=== PATIENT | female | born 1960 | race African-American/Black ===

== ENCOUNTER 2016-11-15 13:32 | Emergency (ER) | payer OTHER, MEDICARE ==
[~2016-11-15] VITALS: Ht 167.6 cm; Wt 71.2 kg
[~2016-11-15 13:32] MED LIST: AFRIN PUMPMIST15 ML NASB; ALBUTEROL0.09 MG/A1 INH; AMOXIL 875 MG875 MG PO; BACTRIM DS 8001 TAB PO; DURICEF500 MG PO; EFFEXOR-XR75 MG PO; FLEXERIL10 MG PO; FLUCONAZOLE150 MG PO; IBU800 MG PO; IBUPROFEN800 M1 PO; MEDROL DOSEPAK1 PAC PO; PANTOPRAZOLE SO40 MG PO; PERCOCET 325 MG1 TA2 PO; PERCOCET 5-3251 EACH PO; PYRIDIUM200 MG PO; TESSALON PERLE100 MG PO; VALIUM5 M1 PO; VENLAFAXINE225 MG PO
[2016-11-15 13:40] VITALS: BP 126/63
[2016-11-15] MEDS ORDERED: AUGMENTIN 875-1 EACH PO (14:02)
--- NOTE | 2016-11-15 14:02 | ED INFLUENZA/URI COMPLAINT ---
History of Present Illness General Chief Complaint: General Adult Stated Complaint: "I THINK I HAVE SINUS INFECTION" Source: patient Exam Limitations: no limitations Vital Signs & Intake/Output Vital Signs & Intake/Output Vital Signs Date Time Temp Pulse Resp B/P Pulse O2 O2 Flow FiO2 Ox Delivery Rate 11/15 1340 98.6 84 20 126/63 97 Room Air Allergies Coded Allergies: acetaminophen (From VICODIN) (UPSET STOMACH 11/02/15) hydrocodone (From VICODIN) (UPSET STOMACH 11/02/15) Reconcile Medications Amoxicillin/Potassium Clav (Augmentin 875-125 Tablet) 875 MG-125 MG TABLET 1 TAB PO BID SINUSITIS Ibuprofen 800 MG TABLET 1 TAB PO TID PRN PAIN Oxycodone HCl/Acetaminophen (Percocet 5-325 MG Tablet) 1 EACH TABLET 1 TAB PO Q4-6 PRN BREAKTHROUGH PAIN Pantoprazole Sodium 40 MG TABLET.DR 1 TAB PO DAILY AC GI (Reported) Phenazopyridine Hydrochlorid2 (Pyridium) 200 MG TAB 1 TAB PO TID DYSURIA Sulfamethoxazole/Trimethopri (Bactrim Ds 800 MG-160 MG) 1 TAB TAB 1 TAB PO Q12 UTI Venlafaxine Hydrochloride (Effexor-XR) 75 MG CER 1 CAP PO DAILY DEPRESSION ( Reported) Triage Note: "I THINK I HAVE A SINUS INFECTION " PAIN AND PRESSURE, CONGESTION IN HEAD X 2 WEEKS Triage Nurses Notes Reviewed? yes HPI: 56-year-old female here with complaints of sinus pain and pressure and thick yellow rhinorrhea that has been going on for 2 weeks, no significant improvement. She denies fever or flulike illness. She has a minimal cough without production. Symptoms are moderate pressure sensation in the sinuses and the nasal cavity. No sore throat. Past History Travel History Traveled to [place] past 21 day No Medical History Any Pertinent Medical History? see below for history Neurological: NONE EENT: NONE Cardiovascular: NONE Respiratory: NONE Gastrointestinal: GERD, BOWEL OBSTRUCTION Hepatic: NONE Renal: NONE Musculoskeletal: NONE Psychiatric: depression, PTSD Endocrine: NONE Blood Disorders: NONE Cancer(s): NONE TRANSLATIONAL SPECIALIST/Reproductive: NONE Other Medical Hx: sMALL BOWEL OBSTRUCTION Surgical History Surgical History: BOWEL RESECTION FROM SMALL BOWEL OBSTRUCTION 1980S Psychosocial History Who do you live with Family What is your primary language Grenadian Tobacco Use: Current Not Daily Daily Tobacco Use Amount/Type: =< 4 Cigarettes daily ETOH Use: occasional use Illicit Drug Use: denies illicit drug use Family History Hx Contributory? No Review of Systems Review of Systems Constitutional: Reports: see HPI. EENTM: Reports: see HPI. Respiratory: Reports: no symptoms. Cardiovascular: Reports: no symptoms. GI: Reports: no symptoms. Genitourinary: Reports: no symptoms. Musculoskeletal: Reports: no symptoms. Skin: Reports: no symptoms. Neurological/Psychological: Reports: no symptoms. Hematologic/Endocrine: Reports: no symptoms. Immunologic/Allergic: Reports: no symptoms. All Other Systems: Reviewed and Negative Physical Exam Physical Exam Ears, Nose, Throat: PAIN PRESSURE TO THE FRONTAL MAXILLARY SINUSES WITH NASAL CONGESTION NOTED. Respiratory: normal breath sounds, chest non-tender, no respiratory distress Cardiovascular: regular rate/rhythm Comments: Well-developed well-nourished no apparent distress. HEENT: Atraumatic, extraocular motion intact Neck: Supple, no lymphadenopathy Back: Nontender Respiratory: No respiratory distress Extremities: No edema, full range of motion Neuro: Alert and oriented x3 Psych: Mood affect normal, normal memory normal judgment. Skin: Warm and dry, no rash on exposed skin Core Measures Severe Sepsis Present: No Septic Shock Present: No Progress Differential Diagnosis: influenza, meningitis, neutropenia, otitis, pneumonia, pharyngitis, sinusitis Plan of Care: We'll treat with antibiotics for sinusitis recommend nasal spray over-the- counter Initial ED EKG: none Departure Departure Disposition: HOME OR SELF CARE Condition: Stable Clinical Impression Primary Impression: Sinusitis Referrals: STEFAN BROWN APRN (PCP/Family) Additional Instructions: Take antibiotics for your infection as directed. Use [id number] multisystem cold medication as needed. Motrin and Tylenol as needed for fever. Drink plenty of fluids. Return or follow-up with your doctor if not better in the next 3-5 days or if you're having continued worsening fevers, nausea, vomiting, shortness of breath, abdominal pain, difficulty swallowing or drinking or worsening flulike illness. Departure Forms: Customer Survey General Discharge Information Prescriptions: Current Visit Scripts Amoxicillin/Potassium Clav (Augmentin 875-125 Tablet) 1 TAB PO BID #20 TAB
== END 2016-11-15 14:34 ==
LOC: ERH 13:32
DX: J32.9 Chronic sinusitis, unspecified (principal)

== ENCOUNTER 2016-11-23 15:06 | Emergency (ER) | payer OTHER, MEDICARE ==
[~2016-11-23] VITALS: Ht 167.6 cm; Wt 71.2 kg
[~2016-11-23 15:06] MED LIST changes: +AUGMENTIN 875-1 EACH PO
--- NOTE | 2016-11-23 16:05 | ED HAND/WRIST INJURY COMPLAINT ---
History of Present Illness General Chief Complaint: Hand or Wrist Injury Stated Complaint: RT WRIST PAIN Source: patient, old records Exam Limitations: no limitations Vital Signs & Intake/Output Vital Signs & Intake/Output Vital Signs Date Time Temp Pulse Resp B/P Pulse O2 O2 Flow FiO2 Ox Delivery Rate 11/23 1509 97.1 86 18 156/88 96 Allergies Coded Allergies: acetaminophen (From VICODIN) (UPSET STOMACH 11/02/15) hydrocodone (From VICODIN) (UPSET STOMACH 11/02/15) Reconcile Medications Amoxicillin/Potassium Clav (Augmentin 875-125 Tablet) 875 MG-125 MG TABLET 1 TAB PO BID SINUSITIS Ibuprofen 800 MG TABLET 1 TAB PO TID PRN PAIN Naproxen (Naprosyn) 500 MG TABLET 1 TAB PO Q12H PRN pain Oxycodone HCl/Acetaminophen (Percocet 5-325 MG Tablet) 1 EACH TABLET 1 TAB PO Q4-6 PRN BREAKTHROUGH PAIN Oxycodone HCl/Acetaminophen (Percocet 5-325 MG Tablet) 5 MG-325 MG TABLET 1 TAB PO Q6H PRN PAIN Pantoprazole Sodium 40 MG TABLET.DR 1 TAB PO DAILY AC GI (Reported) Phenazopyridine Hydrochlorid2 (Pyridium) 200 MG TAB 1 TAB PO TID DYSURIA Sulfamethoxazole/Trimethopri (Bactrim Ds 800 MG-160 MG) 1 TAB TAB 1 TAB PO Q12 UTI Venlafaxine Hydrochloride (Effexor-XR) 75 MG CER 1 CAP PO DAILY DEPRESSION ( Reported) Triage Note: PT STATES THAT HER TENDONITIS IN R HAND IS FLARING UP AND TYLENOL DOES NOT WORK. STATES THAT SHE HAS BEEN SEEN HERE IN THE PAST FOR THE SAME AND WE GIVE HER PERCOCET Triage Nurses Notes Reviewed? yes HPI: Patient is a 56-year-old female presents complaining of severe right wrist pain. Patient reports she has a history of tendinitis to the right wrist, was diagnosed over one year ago. Yesterday pain exacerbated. Pain is a sharp and aching pain worsens with movement and palpation. Patient is not taking any medication at home for her symptoms. Patient had similar symptoms in her left wrist that improved with cortisone shot. Patient reports that her primary care provider in the office today and that she plans on following up with her memory care provider for referral to the orthopedist. Patient is right-hand dominant. Patient denies recent trauma, numbness, rash, fevers. (JULIUS ARMAS) Past History Travel History Traveled to [place] past 21 day No Medical History Any Pertinent Medical History? 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 No (JULIUS ARMAS) Review of Systems Review of Systems Constitutional: Denies: fever. Respiratory: Reports: no symptoms. Cardiovascular: Reports: no symptoms. Musculoskeletal: Reports: see HPI. Skin: Denies: rash. Neurological/Psychological: Denies: numbness, paresthesia. Hematologic/Endocrine: Denies: bruising, bleeding. Immunologic/Allergic: Denies: splenectomy. (JULIUS ARMAS) Physical Exam Physical Exam General Appearance: well developed/nourished, alert, awake Head: atraumatic, normal appearance Eyes: Bilateral: normal appearance, PERRL, EOMI. Ears, Nose, Throat: hearing grossly normal Neck: normal inspection, supple, full range of motion Cardiovascular/Respiratory: no respiratory distress Back: normal inspection, normal range of motion Elbow Right: normal range of motion, normal inspection, nontender Forearm Right: normal range of motion, normal inspection Wrist Right: normal range of motion, normal inspection, tenderness over the distal radius with range of motion of the thumb. No anatomical snuffbox tenderness Hand Left: normal inspection, normal range of motion Hand Right: normal inspection, normal range of motion, mild tenderness 1st metacarpal. Full range of motion of all fingers. Neurologic/Tendon: normal sensation, normal motor functions, normal tendon functions Skin: intact, normal color, warm/dry (JULIUS ARMAS) Progress Differential Diagnosis: arthritis, avascular necrosis, de Quervain's tenosynovitis, tendinitis Plan of Care: Orders Procedure Date/time Status Durable Medical Equipment 11/23 1607 Active No recent trauma, no signs of infectious etiology. Labs and imaging deferred. Velcro wrist splint with thumb spica placed by nursing staff. Patient appears stable for discharge and outpatient follow-up. (JULIUS ARMAS) Departure Departure Time of Disposition: 1609 Disposition: HOME OR SELF CARE Condition: Stable Clinical Impression Primary Impression: Tendonitis of wrist, right Referrals: STEFAN BROWN APRN (PCP/Family) Additional Instructions: Rest, wear splint, elevate your right wrist. Follow-up with her primary care provider for further evaluation and possible orthopedic referral. Departure Forms: Customer Survey General Discharge Information Prescriptions: Current Visit Scripts Oxycodone HCl/Acetaminophen (Percocet 5-325 MG Tablet) 1 TAB PO Q6H PRN PAIN #10 TAB Naproxen (Naprosyn) 1 TAB PO Q12H PRN pain #10 TAB (JULIUS ARMAS) PA/POLITICAL GEOGRAPHER Co-Sign Statement Statement: ED Attending supervision documentation- [] I saw and evaluated the patient. I have also reviewed all the pertinent lab results and diagnostic results. I agree with the findings and the plan of care as documented in the PA's/POLITICAL GEOGRAPHER's documentation. [X] I have reviewed the ED Record and agree with the PA's/POLITICAL GEOGRAPHER's documentation. [] Additions or exceptions (if any) to the PAs/POLITICAL GEOGRAPHER's note and plan are summarized below: [] (ELSI EVANS,PALOMO)
[2016-11-23] MEDS ORDERED: NAPROSYN500 M1 PO (16:11)
[2016-11-23] MEDS ORDERED: PERCOCET 5-3251 EACH PO (16:11)
[2016-11-23 16:16] VITALS: BP 148/74
== END 2016-11-23 16:16 ==
LOC: ERH 15:06
DX: M77.8 Other enthesopathies, not elsewhere classified (principal)

== ENCOUNTER 2017-02-10 10:29 | Emergency (ER) | payer OTHER, MEDICARE ==
[~2017-02-10] VITALS: Ht 167.6 cm; Wt 71.7 kg
[~2017-02-10 10:29] MED LIST changes: +NAPROSYN500 M1 PO
[2017-02-10 10:33] VITALS: BP 151/78
--- NOTE | 2017-02-10 10:54 | ED DYSPNEA/ASTHMA COMPLAINT ---
History of Present Illness General Chief Complaint: Upper Respiratory Sx/Fever Stated Complaint: COUGH Source: patient Exam Limitations: no limitations Vital Signs & Intake/Output Vital Signs & Intake/Output Vital Signs Date Time Temp Pulse Resp B/P B/P Pulse O2 O2 Flow FiO2 Mean Ox Delivery Rate 02/10 1109 98 Room Air 02/10 1033 97.6 76 18 151/78 98 Room Air Allergies Coded Allergies: acetaminophen (From VICODIN) (UPSET STOMACH 11/02/15) hydrocodone (From VICODIN) (UPSET STOMACH 11/02/15) Reconcile Medications Amoxicillin/Potassium Clav (Augmentin 875-125 Tablet) 875 MG-125 MG TABLET 1 TAB PO BID SINUSITIS Azithromycin (Zithromax) 500 MG TABLET 1 TAB PO DAILY SINUSITIS Benzonatate (Tessalon Perle) 100 MG CAPSULE 1 CAP PO TID PRN COUGH Codeine Phosphate/Guaifenesi (Cheratussin AC Syrup) 10 MG-100 MG/5 ML LIQUID 10 ML PO QPM PRN COUGH DO NOT TAKE WHILE OPERATING MOTOR VEHICLES Fluticasone Propionate (Flonase Allergy Relief) 50 MCG/ACTUATION SPRAY.SUSP 1 SPRAY AIDAN DAILY PRN CONGESTION Ibuprofen 800 MG TABLET 1 TAB PO TID PRN PAIN Naproxen (Naprosyn) 500 MG TABLET 1 TAB PO Q12H PRN pain Oxycodone HCl/Acetaminophen (Percocet 5-325 MG Tablet) 1 EACH TABLET 1 TAB PO Q4-6 PRN BREAKTHROUGH PAIN Oxycodone HCl/Acetaminophen (Percocet 5-325 MG Tablet) 5 MG-325 MG TABLET 1 TAB PO Q6H PRN PAIN Pantoprazole Sodium 40 MG TABLET.DR 1 TAB PO DAILY AC GI (Reported) Phenazopyridine Hydrochlorid2 (Pyridium) 200 MG TAB 1 TAB PO TID DYSURIA Sulfamethoxazole/Trimethopri (Bactrim Ds 800 MG-160 MG) 1 TAB TAB 1 TAB PO Q12 UTI Venlafaxine Hydrochloride (Effexor-XR) 75 MG CER 1 CAP PO DAILY DEPRESSION ( Reported) Triage Note: 56 YO FEMALE TO ER FOR NONPRODUCTIVE COUGH X2 DAYS. AFEBRILE. Triage Nurses Notes Reviewed? yes Onset: Gradual Duration: constant Timing: recent history Severity: moderate HPI: Patient is a 56-year-old female who presents emergency room with a 3 day onset of gradual right-sided sinus pressure and nasal congestion postnasal drip and nonproductive cough. Patient denies any similar sick contacts. Patient is an every day smoker. Denies any fever chills year pain sore throat chest pain shortness of breath or hemoptysis dyspnea on exertion and is otherwise without complaints. (CHEY DRAPER) Past History Travel History Traveled to [place] past 21 day No Medical History Any Pertinent Medical History? 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 No (CHEY DRAPER) Review of Systems Review of Systems Constitutional: Reports: no symptoms. EENTM: Reports: see HPI. Respiratory: Reports: see HPI, cough. Cardiovascular: Reports: no symptoms. GI: Reports: no symptoms. Genitourinary: Reports: no symptoms. Musculoskeletal: Reports: no symptoms. Skin: Reports: no symptoms. Neurological/Psychological: Reports: no symptoms. Hematologic/Endocrine: Reports: no symptoms. Immunologic/Allergic: Reports: no symptoms. All Other Systems: Reviewed and Negative (CHEY DRAPER) Physical Exam Physical Exam General Appearance: no apparent distress, alert Respiratory: normal breath sounds, chest non-tender, no respiratory distress Comments: Well-developed well-nourished person in no acute distress HEENT: Normal EENT exam, extraocular motion intact, no nystagmus. Pupils equally round and reactive to light and accommodation. Nose is atraumatic. External auditory canal and Tympanic membranes clear. Pharynx normal. No swelling or edema. Right-sided maxillary sinus point tenderness nasal congestion noted Neck: Supple, no lymphadenopathy, normal range of motion without pain or tenderness Back: Nontender, no CVA tenderness. Cardiovascular: Regular rate and rhythms no murmurs rubs or gallops, normal JVP Respiratory: Chest nontender. No respiratory distress.breath sounds clear to auscultation bilaterally Abdomen: Soft, nontender nondistended, no appreciable organomegaly. Normal bowel sounds. No ascites Extremity: No edema, no calf tenderness to palpation, normal and equal pulses. Neuro: Alert oriented x3, motor sensory normal, Skin: No appreciable rash on exposed skin, skin is warm and dry. Psych: Mood and affect is normal, memory and judgment is normal. Core Measures ACS in differential dx? No Severe Sepsis Present: No Septic Shock Present: No (CHEY DRAPER) Progress Differential Diagnosis: asthma, AMI, bronchitis, costochondritis, CHF, COPD, musculoskeletal pain, pericarditis, pulmonary embolism, pneumonia, pneumothorax, rib fracture, unstable angina Plan of Care: Orders Procedure Date/time Status XRY-CHEST XRAY, PA AND LATERAL 02/10 1037 Active Patient on initial examination was in no apparent distress no respiratory distress clear lungs auscultation nontoxic-appearing afebrile Chest x-ray was unremarkable (CHEY DRAPER) Diagnostic Imaging: Viewed by Me: Radiology Read. Radiology Impression: no acute abnormality, no fracture Initial ED EKG: none Comments: PATIENT: MARY HALL PRESENT AGE: 56 PATIENT ACCOUNT NO: [id number] : 62 LOCATION: [facility] ORDERING PHYSICIAN: CHEY RODARTE SERVICE DATE: 02/10/17-1037 EXAM TYPE: RAD - XRY-CHEST XRAY, PA AND LATERAL EXAMINATION: CHEST 2 VIEWS CLINICAL INFORMATION: Cough. COMPARISON: 12/29/2014. TECHNIQUE: PA and lateral views of the chest were obtained. FINDINGS: The cardiac silhouette is not enlarged. The mediastinal and hilar contours are unremarkable. There are neither pleural effusions nor pneumothoraces. There are no consolidations. The osseous structures are unremarkable. IMPRESSION: No evidence for acute disease. DICTATED BY: PAOLA ISLAS MD (CHEY DRAPER) Departure Departure Disposition: HOME OR SELF CARE Condition: Stable Clinical Impression Primary Impression: Sinusitis Secondary Impressions: Upper respiratory disease Referrals: STEFAN BROWN APRN (PCP/Family) Additional Instructions: As discussed begin the prescription azithromycin as directed for the full course. Begin the prescription Tessalon Perles and Cheratussin for cough. Begin [id number] Sudafed for congestion. Begin the prescription of Flonase for nasal congestion. Follow-up with primary care doctor in 3 days if no better. Prescription is awaiting at [facility]. If symptoms worsen return to emergency room. Please discontinue smoking Departure Forms: Customer Survey General Discharge Information Prescriptions: Current Visit Scripts Benzonatate (Tessalon Perle) 1 CAP PO TID PRN COUGH #21 CAP Codeine Phosphate/Guaifenesi (Cheratussin AC Syrup) 10 ML PO QPM PRN COUGH #100 ML DO NOT TAKE WHILE OPERATING MOTOR VEHICLES Azithromycin (Zithromax) 1 TAB PO DAILY #5 TAB Fluticasone Propionate (Flonase Allergy Relief) 1 SPRAY AIDAN DAILY PRN CONGESTION #1 BOT (CHEY DRAPER) PA/POURED CONCRETE WALL TECHNICIAN Co-Sign Statement Statement: ED Attending supervision documentation- [] I saw and evaluated the patient. I have also reviewed all the pertinent lab results and diagnostic results. I agree with the findings and the plan of care as documented in the PA's/POURED CONCRETE WALL TECHNICIAN's documentation. [X] I have reviewed the ED Record and agree with the PA's/POURED CONCRETE WALL TECHNICIAN's documentation. [] Additions or exceptions (if any) to the PAs/POURED CONCRETE WALL TECHNICIAN's note and plan are summarized below: [] (OMKAR AVILA DO) Critical Care Note Critical Care Note Critical Care Time: non-applicable (CHEY DRAPER)
[2017-02-10] MEDS ORDERED: FLONASE ALLERG9.9 ML NAS (11:07)
[2017-02-10] MEDS ORDERED: TESSALON PERLE100 M1 PO (11:07)
[2017-02-10] MEDS ORDERED: ZITHROMAX500 M2 PO (11:07)
[2017-02-10] MEDS ORDERED: CHERATUSSIN AC118 M1 PO (11:07)
[2017-02-10] MEDS ORDERED: VENLAFAXINE HC150 MG PO (11:11)
[2017-02-10] MEDS ORDERED: LISINOPRIL5 M1 PO (11:11)
[2017-02-10] MEDS ORDERED: GABAPENTIN100 M2 PO (11:11)
== END 2017-02-10 11:15 ==
LOC: ERH 10:29
DX: J32.9 Chronic sinusitis, unspecified (principal); F17.210 Nicotine dependence, cigarettes, uncomplicated; J39.9 Disease of upper respiratory tract, unspecified

== ENCOUNTER 2018-03-29 16:32 | Emergency (ER) | payer OTHER, MEDICARE ==
[~2018-03-29] VITALS: Ht 167.6 cm; Wt 63.5 kg
[~2018-03-29 16:32] MED LIST changes: +CHERATUSSIN AC118 M1 PO; +FLONASE ALLERG9.9 ML NAS; +GABAPENTIN100 M2 PO; +HYDROXYZINE HCL50 M2 PO; +LISINOPRIL5 M1 PO; +PREDNISONE10 M2 PO; +TESSALON PERLE100 M1 PO; +VENLAFAXINE HC150 MG PO; +ZITHROMAX500 M2 PO
[2018-03-29 17:24] LABS: ABSOLUTE BASOPHIL COUNT 0 /CUMM (0.0-0.2); ABSOLUTE EOSINOPHIL COUNT 0.1 /CUMM (0.0-0.7); ABSOLUTE GRANULOCYTE CT 3.8 /CUMM (1.4-6.5); ABSOLUTE LYMPH COUNT 2.8 /CUMM (1.2-3.4); ABSOLUTE MONOCYTE COUNT 0.5 /CUMM (0.10-0.60); BASOPHIL % 0.4 % (0.0-2.0); EOSINOPHIL % 1.2 % (0-5); GRANULOCYTE % 52.8 % (42.2-75.2); HEMATOCRIT 41.5 % (37-47); MEAN CORPUSCULAR HGB 29.6 PG (27.0-31.0); MEAN CORPUSCULAR HGB CONC 33.2 G/DL (33.0-37.0); MEAN CORPUSCULAR VOLUME 89.1 FL (81.0-99.0); MEAN PLATELET VOLUME 8.2 FL (7.4-10.4); PLATELET COUNT 320 /CUMM (130-400); RBC DISTRIBUTION WIDTH 14.2 % (11.5-14.5); RED BLOOD CELL CT 4.65 /CUMM (4.20-5.40); WHITE BLOOD CELL COUNT 7.2 /CUMM (4.8-10.8)
--- NOTE | 2018-03-29 19:13 | CT SCAN REPORT ---
EXAMINATION: CT ABDOMEN AND PELVIS WITH CONTRAST CLINICAL INFORMATION: Right-sided abdominal pain COMPARISON: None TECHNIQUE: Multidetector volumetric imaging was performed of the abdomen and pelvis following IV administration of 95 mL of Optiray 300 intravenous contrast. Sagittal and coronal reformatted images were obtained on the technologist's workstation. DLP: 288 mGy-cm FINDINGS: LUNG BASES: Mild emphysematous changes are noted at the lung bases. A subpleural pulmonary nodule in the right middle lobe measures 4 mm (image 54, series 3). A triangular pulmonary nodule adjacent to the fissure at the right lung base measures 3 mm in size (image 32, series 3. This most likely represents an intrapulmonary lymph node. No consolidation or effusion. LIVER, GALLBLADDER, AND BILIARY TREE: The liver is normal in size, shape, and attenuation. No focal hepatic lesion or biliary ductal dilatation is present. The gallbladder is mildly distended with no evidence of radiopaque gallstones, gallbladder wall thickening, or obvious pericholecystic inflammatory changes. PANCREAS: Unremarkable. SPLEEN: Unremarkable. ADRENAL GLANDS: There is a possible enhancing lesion involving the left adrenal gland measuring approximately 1.6 x 1.1 cm. (Image 25, series 2). The Hounsfield units are 72. The right adrenal gland is normal in appearance. KIDNEYS AND URETERS: The kidneys are normal in size, shape, and attenuation. No hydronephrosis, hydroureter, or calculi seen. No perinephric stranding. BLADDER: Unremarkable. GASTROINTESTINAL TRACT: Moderately dense stool is scattered throughout the colon. No dilated loops of small or large bowel. A normal appendix is visualized in the right lower quadrant. There is a tiny transient small bowel intussusception in the right mid abdomen (image 42, series 2). ABDOMINAL WALL: No significant hernia is appreciated. LYMPH NODES: Normal. VASCULAR: Unremarkable. PELVIC VISCERA: Uterus and adnexal regions are unremarkable.. OSSEOUS STRUCTURES: Mild degenerative changes noted in the L5-S1 level with endplate changes and vacuum disc phenomena. No acute findings. IMPRESSION: 1. Normal appendix. The gallbladder is mildly distended without CT evidence for acute cholecystitis. 2. Indeterminate left adrenal lesion. Recommend formal characterization with dedicated adrenal protocol. A metastasis to the left adrenal gland cannot be completely excluded. 3. Mild to moderate emphysematous changes identified at the bases suggesting possibly more significant emphysema and the upper lobes. Recommend correlation with pulmonary status and if there is a history of smoking consider formal CT lung screening given pulmonary nodules identified on the current study measuring up to 0.4 cm. 4. Tiny likely transient small bowel intussusception in the right anterior mid abdomen.
--- NOTE | 2018-03-29 19:29 | ED GI/GU/ABDOMINAL COMPLAINT ---
History of Present Illness General Chief Complaint: General Adult Stated Complaint: PT IS HAVING PAIN IN THE RT SIDE AND STOMACH Source: patient Exam Limitations: no limitations Vital Signs & Intake/Output Vital Signs & Intake/Output Vital Signs Date Time Temp Pulse Resp B/P B/P Pulse O2 O2 Flow FiO2 Mean Ox Delivery Rate 03/29 1948 98.2 75 16 168/77 97 Room Air 03/29 1947 Room Air 03/29 1637 97.7 75 18 137/69 95 Room Air ED Intake and Output 03/30 0000 03/29 1200 Intake Total 1000 Output Total Balance 1000 Intake, IV 1000 Patient 140 lb Weight Weight Reported by Patient Measurement Method Allergies Coded Allergies: hydrocodone (From VICODIN) (UPSET STOMACH 11/02/15) Reconcile Medications Amlodipine Besylate 10 MG TABLET 1 TAB PO DAILY BP (Reported) Lisinopril (Zestril) 10 MG TABLET 1 TAB PO DAILY BP (Reported) Pantoprazole Sodium 40 MG TABLET.DR 1 TAB PO DAILY GI (Reported) Venlafaxine HCl (Venlafaxine HCl ER) 150 MG CAP.ER.24H 1 CAP PO DAILY DEPRESSION (Reported) Triage Note: PT FROM HOME C/O RIGHT SIDED ABD PAIN THAT IS NON RADIATING FOR THE PAST 2X DAYS. PT STATES NAUSEA -VOMITING, LAST BM 2X DAYS PRIOR THAT WAS NORMAL FOR PT PER PT. PT STATES HX OF BOWEL OBSTRUCTION, PT ABLE TO TOLERATE FOOD AND LIQUIDS PO WITHOUT AN ISSUE. NO DISTRESS NOTED IN TRIAGE. VSS. PT BEGAN 2 NEW BP MEDICATIONS 3X WEEKS PRIOR UNSURE IF THAT IS WHAT IS UPSETTING STOMACH. CRAMPING PAIN 04/28. Triage Nurses Notes Reviewed? yes LMP (ages 10-50): unknown ? N Is pt currently ? No Onset: Abrupt Duration: day(s): (2), constant, continues in ED, getting worse Timing: single episode today Quality/Severity: sharpness, stabbing Severity Numbers: 7 Location: right flank, right lower quadrant, right upper quadrant Radiation: no radiation Activities at Onset: none Prior Abdominal Problems: none Past Sexual History: Unobtainable at this time No Modifying Factors: none HPI: 57-year-old female history of bowel obstruction, hypertension presents for evaluation of right-sided abdominal pain. This pain started 2 days ago and has been getting worse. The pain does not radiate she describes it as sharp and stabbing. Rates as a 6 or 7 out of 10. She never had this pain before. She had a normal bowel movement 2 days ago she's passing gas. She reports associated nausea decreased appetite but no vomiting. No recent abdominal surgeries no chest pain shortness of breath fever or urinary symptoms or vaginal discharge. She is not taking any medicine for her symptoms. (Sterling Leung) Past History Travel History Traveled to [place] past 21 day No Medical History Any Pertinent Medical History? see below for history Neurological: NONE EENT: NONE Cardiovascular: hypertension Respiratory: NONE Gastrointestinal: GERD, BOWEL OBSTRUCTION Hepatic: NONE Renal: NONE Musculoskeletal: NONE Psychiatric: depression, PTSD Endocrine: NONE Blood Disorders: NONE Cancer(s): NONE SERVICENOW ADMINISTRATOR/Reproductive: NONE Other Medical Hx: sMALL BOWEL OBSTRUCTION Surgical History Surgical History: BOWEL RESECTION FROM SMALL BOWEL OBSTRUCTION 1980S Psychosocial History Who do you live with Family What is your primary language Mozambican Tobacco Use: Current Daily Use Daily Tobacco Use Amount/Type: => 5 Cigarettes daily ETOH Use: occasional use Illicit Drug Use: denies illicit drug use Family History Hx Contributory? No (Sterling Leung) Review of Systems Review of Systems Constitutional: Reports: no symptoms. EENTM: Reports: no symptoms. Respiratory: Reports: no symptoms. Cardiovascular: Reports: no symptoms. GI: Reports: see HPI, abdominal pain, nausea. Genitourinary: Reports: no symptoms. Musculoskeletal: Reports: no symptoms. Skin: Reports: no symptoms. Neurological/Psychological: Reports: no symptoms. Hematologic/Endocrine: Reports: no symptoms. Immunologic/Allergic: Reports: no symptoms. All Other Systems: Reviewed and Negative (Sterling Leung) Physical Exam Physical Exam General Appearance: well developed/nourished, no apparent distress, alert, awake Head: atraumatic, normal appearance Eyes: Bilateral: normal appearance, PERRL, EOMI. Ears, Nose, Throat, Mouth: hearing grossly normal, moist mucous membrane Neck: normal inspection, supple, full range of motion Respiratory: normal breath sounds, chest non-tender, no respiratory distress, lungs clear Cardiovascular: regular rate/rhythm, normal peripheral pulses Peripheral Pulses: 2+ radial (R), 2+ radial (L) Gastrointestinal: normal bowel sounds, soft, no organomegaly, tenderness (RUQ, RLQ RT FLANK ) Back: normal inspection, normal range of motion, no vertebral tenderness Extremities: normal range of motion Neurologic/Psych: no motor/sensory deficits, awake, alert, oriented x 3, normal gait, normal mood/affect Skin: intact, normal color, warm/dry Core Measures ACS in differential dx? No Sepsis Present: No Sepsis Focused Exam Completed? No (Floyd RODARTE,Sterling) Progress Differential Diagnosis: AAA, appendicitis, biliary colic, bowel obstruction, colon cancer, cholecystitis, diverticulitis, hepatitis, ischemic bowel, inflamm bowel dis, intrauterine , kidney stone, ovarian cyst, ovarian torsion, pancreatitis, PID/cervicitis, peptic ulcer, PUD/GERD, SBO, threatened AB, UTI/ pyelo Plan of Care: Orders Procedure Date/time Status Add-on Test (ER Only) 03/29 193 Active C-REACTIVE PROTEIN 03/29 1715 Complete URINALYSIS 03/29 1700 Complete TROPONIN LEVEL 03/29 1700 Complete LIPASE 03/29 1700 Complete COMPREHENSIVE METABOLIC PANEL 03/29 1700 Complete CBC WITHOUT DIFFERENTIAL 03/29 1700 Complete Laboratory Tests 03/29/18 1909: Urine Color YEL, Urine Clarity CLEAR, Urine pH 6.5, Ur Specific [place] 1.010, Urine Protein NEG, Urine Ketones NEG, Urine Nitrite NEG, Urine Bilirubin NEG, Urine Urobilinogen 0.2, Ur Leukocyte Esterase NEG, Ur Microscopic EXAM NOT REQUIRED, Urine Hemoglobin NEG, Urine Glucose NEG 03/29/18 171: Anion Gap 5, Estimated GFR > 60, BUN/Creatinine Ratio 14.3, Glucose 138 H, Calcium 9.6, Total Bilirubin 0.4, AST 25, ALT 31, Alkaline Phosphatase 80, Troponin I < 0.01, C-Reactive Prot, Quant 1.0, Total Protein 7.1, Albumin 4.1, Globulin 3.0, Albumin/Globulin Ratio 1.4, Lipase 78, CBC w Diff NO MAN DIFF REQ, RBC 4.65, MCV 89.1, MCH 29.6, MCHC 33.2, RDW 14.2, MPV 8.2, Gran % 52.8, Lymphocytes % 38.7, Monocytes % 6.9, Eosinophils % 1.2, Basophils % 0.4, Absolute Granulocytes 3.8, Absolute Lymphocytes 2.8, Absolute Monocytes 0.5, Absolute Eosinophils 0.1, Absolute Basophils 0 Patient is here for evaluation of right-sided abdominal pain that started 2 days ago. The pain is located diffusely on the right side include the right upper right lower and right flank. She never had this pain before there is nausea but no vomiting. lab CT scan ordered patient medicated with Toradol. CT scan shows a dilated gallbladder without gallstones pericholecystic fluid or thickening gallbladder wall. There is also an adrenal mass and a small intussusception on the right side of the abdomen. Patient has pain in the area of both the gallbladder and this intussusception. Ultrasound currently is not available. Spoke with Dr. Briggs who recommends a CT scan with oral contrast. Patient abruptly does not want to stay for the repeat CT scan. She is requesting leave AGAINST MEDICAL ADVICE she has think she needs to do tonight. She reports she will come back tomorrow morning for a repeat scan and ultrasound. She understands the risks of premature discharge she is alert and oriented 3 AGAINST MEDICAL ADVICE form signed patient was instructed to return as soon as possible discussed return precautions patient agrees Diagnostic Imaging: Viewed by Me: CT Scan. Discussed w/RAD: CT Scan. Radiology Impression: PATIENT: MARY HALL PRESENT AGE: 57 PATIENT ACCOUNT NO: [id number] : 62 LOCATION: [facility] ORDERING PHYSICIAN: Sterling RODARTE SERVICE DATE: 03/29/18 EXAM TYPE: CAT - CT ABD & PELVIS W IV CONTRAST EXAMINATION: CT ABDOMEN AND PELVIS WITH CONTRAST CLINICAL INFORMATION: Right-sided abdominal pain COMPARISON: None TECHNIQUE: Multidetector volumetric imaging was performed of the abdomen and pelvis following IV administration of 95 mL of Optiray 300 intravenous contrast. Sagittal and coronal reformatted images were obtained on the technologist's workstation. DLP: 288 mGy-cm FINDINGS: LUNG BASES: Mild emphysematous changes are noted at the lung bases. A subpleural pulmonary nodule in the right middle lobe measures 4 mm (image 54, series 3). A triangular pulmonary nodule adjacent to the fissure at the right lung base measures 3 mm in size (image 32, series 3. This most likely represents an intrapulmonary lymph node. No consolidation or effusion. LIVER, GALLBLADDER, AND BILIARY TREE: The liver is normal in size, shape, and attenuation. No focal hepatic lesion or biliary ductal dilatation is present. The gallbladder is mildly distended with no evidence of radiopaque gallstones, gallbladder wall thickening, or obvious pericholecystic inflammatory changes. PANCREAS: Unremarkable. SPLEEN: Unremarkable. ADRENAL GLANDS: There is a possible enhancing lesion involving the left adrenal gland measuring approximately 1.6 x 1.1 cm. (Image 25, series 2). The Hounsfield units are 72. The right adrenal gland is normal in appearance. KIDNEYS AND URETERS: The kidneys are normal in size, shape, and attenuation. No hydronephrosis, hydroureter, or calculi seen. No perinephric stranding. BLADDER: Unremarkable. GASTROINTESTINAL TRACT: Moderately dense stool is scattered throughout the colon. No dilated loops of small or large bowel. A normal appendix is visualized in the right lower quadrant. There is a tiny transient small bowel intussusception in the right mid abdomen (image 42, series 2). ABDOMINAL WALL: No significant hernia is appreciated. LYMPH NODES: Normal. VASCULAR: Unremarkable. PELVIC VISCERA: Uterus and adnexal regions are unremarkable.. OSSEOUS STRUCTURES: Mild degenerative changes noted in the L5-S1 level with endplate changes and vacuum disc phenomena. No acute findings. IMPRESSION: 1. Normal appendix. The gallbladder is mildly distended without CT evidence for acute cholecystitis. 2. Indeterminate left adrenal lesion. Recommend formal characterization with dedicated adrenal protocol. A metastasis to the left adrenal gland cannot be completely excluded. 3. Mild to moderate emphysematous changes identified at the bases suggesting possibly more significant emphysema and the upper lobes. Recommend correlation with pulmonary status and if there is a history of smoking consider formal CT lung screening given pulmonary nodules identified on the current study measuring up to 0.4 cm. 4. Tiny likely transient small bowel intussusception in the right anterior mid abdomen. DICTATED BY: Zaynab Gu MD DATE/TIME DICTATED:03/29/181855 EXTRACTOR AND WRINGER OPERATOR:ONESIMO DATE/TIME TRANSCRIBED:03/29/181855 CONFIDENTIAL, DO NOT COPY WITHOUT APPROPRIATE AUTHORIZATION. <Electronically signed in Other Vendor System> SIGNED BY: Zaynab Gu MD 0 Initial ED EKG: none (Sterling Leung) Departure Departure Disposition: LEFT AGAINST MEDICAL ADVICE Condition: Stable Clinical Impression Primary Impression: Abdominal pain Qualifiers: Abdominal location: right lower quadrant Qualified Code: R10.31 - Right lower quadrant pain Referrals: Natasha Garland APRN (PCP/Family) Additional Instructions: You are leaving AGAINST MEDICAL ADVICE premature discharge could resulted negative health effects including permanent disability or . It is recommended YOU return to the emergency Department as soon as possible for additional imaging. Tylenol or ibuprofen for pain. Drink plenty of fluids. Return at any time with any concerns especially fever or worsening pain unable tolerate fluids. Please note that there might be incidental findings in your evaluation that are unrelated to the current emergency department visit. Please notify your primary care doctor about this emergency department visit in order to obtain and review all of the testing performed so that these incidental findings can be monitored as needed. If you had an x-ray performed, please understand that some fractures or other findings may not be seen on the initial set of x-rays. If your symptoms persist you might need a repeat set of x-rays to check for such a fracture. If you had a laceration evaluated, please understand that foreign bodies such as glass or wood may not be visible to the naked eye or on plain x-rays. If the wound becomes red, swollen, increasingly more painful or if there is any drainage from the wound, please have it reevaluated by a physician for the possibility of a retained foreign body. If you're unable to follow up as outlined in the discharge instructions please return to the emergency department. Thank you for choosing the Emergency Department for your care. It was a pleasure to serve you today. Departure Forms: Customer Survey General Discharge Information (Sterling Leung) PA/GRINDER Co-Sign Statement Statement: ED Attending supervision documentation- [] I saw and evaluated the patient. I have also reviewed all the pertinent lab results and diagnostic results. I agree with the findings and the plan of care as documented in the PA's/GRINDER's documentation. [x] I have reviewed the ED Record and agree with the PA's/GRINDER's documentation. [] Additions or exceptions (if any) to the PAs/GRINDER's note and plan are summarized below: [] Patient left AGAINST MEDICAL ADVICE. She consented to return the following day for the repeat CAT scan. I reviewed the medical record and confirmed that she did so. (Rodolfo Crespo DO)
[2018-03-29 19:48] VITALS: BP 168/77
[2018-03-30] MEDS ORDERED: ZESTRIL10 M1 PO (12:43)
[2018-03-30] MEDS ORDERED: AMLODIPINE BESY10 M1 PO (12:44)
[2018-03-30] MEDS ORDERED: PANTOPRAZOLE SO40 M1 PO (12:45)
== END 2018-03-29 20:41 | disposition left against medical advice (07) ==
LOC: ERH 16:32
PROVIDERS: Physician Assistant Medical
DX: R10.31 Right lower quadrant pain (principal)
CPT/HCPCS: 74177; 81003; 96374; J1885

== ENCOUNTER 2018-03-30 10:11 | Emergency (ER) | payer OTHER, MEDICARE ==
[~2018-03-30] VITALS: Ht 167.6 cm; Wt 64.4 kg
--- NOTE | 2018-03-30 11:04 | ED GI/GU/ABDOMINAL COMPLAINT ---
History of Present Illness General Chief Complaint: Abdominal Pain/Flank Pain Stated Complaint: RETUN FPR CT AND US SEEN 03/29 FOR ABD PAIN Source: patient, old records Exam Limitations: no limitations Vital Signs & Intake/Output Vital Signs & Intake/Output Vital Signs Date Time Temp Pulse Resp B/P B/P Pulse O2 O2 Flow FiO2 Mean Ox Delivery Rate 03/30 1022 95.9 59 20 125/73 99 Room Air Allergies Coded Allergies: hydrocodone (From VICODIN) (UPSET STOMACH 11/02/15) Reconcile Medications Amlodipine Besylate 10 MG TABLET 1 TAB PO DAILY BP (Reported) Lisinopril (Zestril) 10 MG TABLET 1 TAB PO DAILY BP (Reported) Pantoprazole Sodium 40 MG TABLET.DR 1 TAB PO DAILY GI (Reported) Venlafaxine HCl (Venlafaxine HCl ER) 150 MG CAP.ER.24H 1 CAP PO DAILY DEPRESSION (Reported) Triage Note: C/O RUQ ABDOMINAL PAIN X 2 DAYS, WITH NAUSEA, SEEN AT [facility]. HERE FOR US AND REPEAT CT SCAN. STATES PAIN IS UNCHANGED. Triage Nurses Notes Reviewed? yes ? N Is pt currently ? No HPI: Patient returns to the emergency department for further evaluation of her right upper quadrant pain. Pain is been present for 3 days. The pain is sharp in nature. Slight nausea occasionally but no vomiting. He is no radiation. There are no aggravating or mitigating factors. Patient was seen in the emergency department yesterday and had a workup. Patient was advised to have an oral contrast CT sent ultrasound was not present but the patient cannot state a habit and she promised to return this morning for further evaluation. Patient states the pain is been present all night because it is not worse nor better. Past History Travel History Traveled to [place] past 21 day No Medical History Any Pertinent Medical History? see below for history Neurological: NONE EENT: NONE Cardiovascular: hypertension Respiratory: NONE Gastrointestinal: GERD, BOWEL OBSTRUCTION Hepatic: NONE Renal: NONE Musculoskeletal: NONE Psychiatric: depression, PTSD Endocrine: NONE Blood Disorders: NONE Cancer(s): NONE SHIPPING HAND/Reproductive: NONE Other Medical Hx: sMALL BOWEL OBSTRUCTION Surgical History Surgical History: BOWEL RESECTION FROM SMALL BOWEL OBSTRUCTION 1980S Psychosocial History Who do you live with Family What is your primary language [place] Tobacco Use: Never used ETOH Use: occasional use Illicit Drug Use: denies illicit drug use Family History Hx Contributory? No Review of Systems Review of Systems Constitutional: Reports: no symptoms. EENTM: Reports: no symptoms. Respiratory: Reports: no symptoms. Cardiovascular: Reports: no symptoms. GI: Reports: see HPI, abdominal pain, nausea. Genitourinary: Reports: no symptoms. Musculoskeletal: Reports: no symptoms. Skin: Reports: no symptoms. Neurological/Psychological: Reports: no symptoms. Hematologic/Endocrine: Reports: no symptoms. Immunologic/Allergic: Reports: no symptoms. All Other Systems: Reviewed and Negative Physical Exam Physical Exam General Appearance: well developed/nourished, alert, awake Head: atraumatic, normal appearance Eyes: Bilateral: PERRL, EOMI. Ears, Nose, Throat, Mouth: hearing grossly normal, moist mucous membrane Neck: normal inspection, supple, full range of motion Respiratory: normal breath sounds, chest non-tender, no respiratory distress, lungs clear Cardiovascular: regular rate/rhythm, normal peripheral pulses Gastrointestinal: normal bowel sounds, soft, no organomegaly, tenderness (RUQ) Back: normal inspection, normal range of motion Extremities: normal range of motion Neurologic/Psych: no motor/sensory deficits, awake, alert, oriented x 3, normal gait, normal mood/affect Skin: intact, normal color, warm/dry Core Measures ACS in differential dx? No Sepsis Present: No Sepsis Focused Exam Completed? No Progress Differential Diagnosis: biliary colic, cholecystitis, gastritis, hepatitis Plan of Care: Orders Procedure Date/time Status LACTIC ACID 03/30 1326 Active Add-on Test (ER Only) 03/30 1113 Active EKG 03/30 1113 Active TROPONIN LEVEL 03/30 1103 Complete URINALYSIS 03/30 1026 Complete LIPASE 03/30 1026 Complete LACTIC ACID 03/30 1026 Complete COMPREHENSIVE METABOLIC PANEL 03/30 1026 Complete CBC WITHOUT DIFFERENTIAL 03/30 1026 Complete Laboratory Tests 03/30/18 1110: Urine Color YEL, Urine Clarity CLEAR, Urine pH 6.0, Ur Specific [place] 1.015, Urine Protein NEG, Urine Ketones NEG, Urine Nitrite NEG, Urine Bilirubin NEG, Urine Urobilinogen 0.2, Ur Leukocyte Esterase NEG, Ur Microscopic EXAM NOT REQUIRED, Urine Hemoglobin NEG, Urine Glucose NEG 03/30/18 1103: Anion Gap 7, Estimated GFR > 60, BUN/Creatinine Ratio 8.6, Glucose 105 H, Lactic Acid 1.9, Calcium 9.2, Total Bilirubin 0.3, AST 26, ALT 28, Alkaline Phosphatase 77, Troponin I < 0.01, Total Protein 6.9, Albumin 3.9, Globulin 3.0, Albumin/Globulin Ratio 1.3, Lipase 58, CBC w Diff NO MAN DIFF REQ, RBC 4.47, MCV 87.8, MCH 29.8, MCHC 34.0, RDW 14.1, MPV 7.8, Gran % 37.5 L, Lymphocytes % 52.4 H, Monocytes % 8.0, Eosinophils % 1.4, Basophils % 0.7, Absolute Granulocytes 2.4, Absolute Lymphocytes 3.3, Absolute Monocytes 0.5, Absolute Eosinophils 0.1, Absolute Basophils 0 Diagnostic Imaging: Viewed by Me: Ultrasound. Discussed w/RAD: Ultrasound. Radiology Impression: PATIENT: MARY HALL PRESENT AGE: 57 PATIENT ACCOUNT NO: [id number] : 62 LOCATION: [facility] ORDERING PHYSICIAN: Jarrett Mills MD SERVICE DATE: 03/30/18 EXAM TYPE: US - US-LIMITED ABDOMEN EXAMINATION: US ABDOMEN LIMITED CLINICAL INFORMATION: Right upper quadrant pain. Distended gallbladder on CT. COMPARISON: CT abdomen 2017 TECHNIQUE: Real-time imaging of the right upper quadrant abdominal viscera. FINDINGS: PANCREAS: The visualized pancreas is normal in size and contour and echogenicity. The pancreatic tail is obscured by bowel gas but appears normal on recent CT 03/29/2018. There is no pancreatic ductal distention or retroperitoneal effusion. LIVER: Normal. The liver demonstrates normal size, contour and echogenicity. No focal lesion or intrahepatic biliary duct dilatation. GALLBLADDER: The gallbladder is distended to 3.3 cm in diameter. Pet Care Technician notes patient tender in the area of gallbladder. There is no gallbladder wall thickening or wall edema or pericholecystic fluid. No gallstones are demonstrated. There are some echoes within the gallbladder lumen which may represent cholesterol crystals or fine sludge. There is no visible tumefactive sludge. COMMON BILE DUCT: Normal in caliber measuring 0.3 cm in diameter. RIGHT KIDNEY: Normal. No hydronephrosis. No renal calculi or focal parenchymal lesions. The kidney measures 11.9 cm in maximum dimension. FREE FLUID: None. IMPRESSION: 1. Gallbladder has some dependent echoes which may represent cholesterol crystals or fine sludge. No gallstones, gallbladder wall thickening, or pericholecystic fluid. Common duct unremarkable. 2. No right hydronephrosis. DICTATED BY: Raudel Joseph MD DATE/TIME DICTATED:03/30/181258 ADA ACCOMMODATION CONSULTANT:ONESIMO DATE/TIME TRANSCRIBED:03/30/181258 CONFIDENTIAL, DO NOT COPY WITHOUT APPROPRIATE AUTHORIZATION. <Electronically signed in Other Vendor System> SIGNED BY: Raudel Joseph MD 03/30/18 1312 Initial ED EKG: NSR, no ST T wave changes Prior EKG: unchanged Comments: CAT scan and labs received from yesterday's visit. D/W DR. CARDENAS WHO REVIEWED THE CT SCAN AND THE ULTRSOUND, LABS NORMAL. Departure Departure Disposition: HOME OR SELF CARE Condition: Stable Clinical Impression Primary Impression: RUQ pain Referrals: Natasha Garland APRN (PCP/Family) Additional Instructions: Have an outpatient HIDA scan. Return if symptoms worsen or for any concerns. Departure Forms: Customer Survey General Discharge Information
[2018-03-30 11:13] LABS: ABSOLUTE BASOPHIL COUNT 0 /CUMM (0.0-0.2); ABSOLUTE EOSINOPHIL COUNT 0.1 /CUMM (0.0-0.7); ABSOLUTE GRANULOCYTE CT 2.4 /CUMM (1.4-6.5); ABSOLUTE LYMPH COUNT 3.3 /CUMM (1.2-3.4); ABSOLUTE MONOCYTE COUNT 0.5 /CUMM (0.10-0.60); BASOPHIL % 0.7 % (0.0-2.0); EOSINOPHIL % 1.4 % (0-5); GRANULOCYTE % 37.5 % (42.2-75.2); HEMATOCRIT 39.2 % (37-47); MEAN CORPUSCULAR HGB 29.8 PG (27.0-31.0); MEAN CORPUSCULAR VOLUME 87.8 FL (81.0-99.0); MEAN PLATELET VOLUME 7.8 FL (7.4-10.4); PLATELET COUNT 338 /CUMM (130-400); RBC DISTRIBUTION WIDTH 14.1 % (11.5-14.5); RED BLOOD CELL CT 4.47 /CUMM (4.20-5.40); WHITE BLOOD CELL COUNT 6.3 /CUMM (4.8-10.8)
[2018-03-30] MEDS ORDERED: ZESTRIL10 M1 PO (12:43)
[2018-03-30] MEDS ORDERED: AMLODIPINE BESY10 M1 PO (12:44)
[2018-03-30] MEDS ORDERED: PANTOPRAZOLE SO40 M1 PO (12:45)
--- NOTE | 2018-03-30 13:12 | ULTRASOUND REPORT ---
EXAMINATION: US ABDOMEN LIMITED CLINICAL INFORMATION: Right upper quadrant pain. Distended gallbladder on CT. COMPARISON: CT abdomen 03/29/2018 TECHNIQUE: Real-time imaging of the right upper quadrant abdominal viscera. FINDINGS: PANCREAS: The visualized pancreas is normal in size and contour and echogenicity. The pancreatic tail is obscured by bowel gas but appears normal on recent CT 03/29/2018. There is no pancreatic ductal distention or retroperitoneal effusion. LIVER: Normal. The liver demonstrates normal size, contour and echogenicity. No focal lesion or intrahepatic biliary duct dilatation. GALLBLADDER: The gallbladder is distended to 3.3 cm in diameter. Automation Operator notes patient tender in the area of gallbladder. There is no gallbladder wall thickening or wall edema or pericholecystic fluid. No gallstones are demonstrated. There are some echoes within the gallbladder lumen which may represent cholesterol crystals or fine sludge. There is no visible tumefactive sludge. COMMON BILE DUCT: Normal in caliber measuring 0.3 cm in diameter. RIGHT KIDNEY: Normal. No hydronephrosis. No renal calculi or focal parenchymal lesions. The kidney measures 11.9 cm in maximum dimension. FREE FLUID: None. IMPRESSION: 1. Gallbladder has some dependent echoes which may represent cholesterol crystals or fine sludge. No gallstones, gallbladder wall thickening, or pericholecystic fluid. Common duct unremarkable. 2. No right hydronephrosis.
[2018-03-30 14:05] VITALS: BP 122/87
== END 2018-03-30 14:33 ==
LOC: ERH 10:11
PROVIDERS: Physician Assistant
DX: R10.11 Right upper quadrant pain (principal)
CPT/HCPCS: 81003; 93005; 93010